=== PATIENT | female | born 1970 | race Caucasian/White ===

== ENCOUNTER 2018-03-19 02:30 | Emergency (ER) | payer OTHER ==
[2018-03-19 03:01] VITALS: BP 136/75; PULSE 85; TEMP 98.7; BMI 25.4
--- NOTE | 2018-03-19 03:05 | PDOC ---
History of Present Illness - General Stated Complaint: CALF PAIN Time Seen by Provider: 03/19/18 03:05 History Source: Patient Exam Limitations: No Limitations - History of Present Illness Initial Comments: 03/19/18 03:15 47 year old female with PMH fibromyalgia presents to ED complaining of right calf pain since yesterday. She states she was walking and then all of a sudden felt her calf cramp up. She denies chest pain, palpitations, shortness of breath , fever, chills, nausea, vomiting, diarrhea. Denies estrogen use, oral contraceptives, Hx blood clots, travel >6 hours, immobilization >3 days, casting of extremities. Past History - Past Medical History Allergies/Adverse Reactions: Allergies Allergy/AdvReac Type Severity Reaction Status Date / Time No Known Allergies Allergy Verified 08/07/16 20:11 Home Medications: Ambulatory Orders Ibuprofen [Motrin -] 600 mg PO Q6H PRN #30 tablet MDD 4 tablets 08/07/16 Oxycodone HCl/Acetaminophen [Percocet 5-325 mg Tablet] 1 tab PO Q6H PRN #20 tablet MDD 4 tablets daily 08/07/16 Hypercholesterolemia: Yes - Suicide/Smoking/Psychosocial Hx Smoking History: Never smoked Have you smoked in the past 12 months: No Information on smoking cessation initiated: No Hx Alcohol Use: Yes (occasswionally) Drug/Substance Use Hx: No Review of Systems - Review of Systems Able to Perform ROS?: Yes Comments:: 03/19/18 03:18 General: denies fever, chills, night sweats, generalized weakness. HEENT: denies sore throat, rhinorrhea, ear pain. Heart: denies chest pain, palpitations, syncope, lower extremity swelling, diaphoresis. Respiratory: denies shortness of breath, cough, sputum production, hematemesis. Abdomen: denies abdominal pain, nausea, vomiting, diarrhea, constipation, blood in stool. : denies dysuria, increased urinary frequency, hematuria, urinary incontinence , flank pain. Back: denies back pain, flank pain. Musculoskeletal: admits to right calf pain. denies joint pain, joint swelling. Neurological: denies headache, dizziness, numbness, tingling, weakness. Skin: denies rash, laceration, abrasion. *Physical Exam - Vital Signs Last Vital Signs Temp Pulse Resp BP Pulse Ox 98.7 F 85 20 136/75 99 03/19/18 02:53 03/19/18 02:53 03/19/18 02:53 03/19/18 02:53 03/19/18 02:53 - Physical Exam Comments: 03/19/18 03:19 Appearance: comfortable. HEENT: head is normocephalic, atraumatic. EOMI. PERRLA. Neck: supple. Full ROM. Heart: regular rhythm. no murmurs, rubs or gallops. No pericardial friction rub. Lungs: clear to auscultation bilaterally. no crackles, rhonchi or wheezing. no stridor. Abdomen: soft, nontender. normal bowel sounds. no rebound, guarding, masses. Extremities: right calf tender to palpation. right lower extremity neurovascularly intact. no calf swelling. Peripheral pulses intact and equal. No lower extremity edema. Neurological: Alert. Oriented x3. CN 2-12 grossly intact. Moves all four extremities. Heart Score/ECG Review - ECG Impressions Comment:: 03/19/18 06:54 Rate 78, regular rhythm, normal axis, no acute ST changes. Medical Decision Making - Medical Decision Making 03/19/18 03:20 47 year old female with PMH fibromyalgia presenting to ED for right calf pain since yesterday. She denies exogenous estrogen use, recent trauma/surgery, hx DVT/PE, recent immobilization, recent travel >6 hours, casting of lower extremities. Initial Vital Signs Temp Pulse Resp BP Pulse Ox 98.7 F 85 20 136/75 99 03/19/18 02:53 03/19/18 02:53 03/19/18 02:53 03/19/18 02:53 03/19/18 02:53 Afebrile. No tachycardia. No hypotension. No hypoxia. Percocet ordered for pain control. Will reassess patient. 03/19/18 05:22 Pt states improvement in pain, but is unable to bear weight or walk unassisted. Pending LE venous ultrasound. 03/19/18 06:20 Pt reassessed, states she had 5 minutes of left sided dull chest pain associated with palpitations that self resolved. Pending EKG. I discussed the case with Dr. De Souza, who will take over care in the Emergency Department. *DC/Admit/Observation/Transfer Diagnosis at time of Disposition: Muscle strain - Discharge Dispostion Disposition: HOME - Referrals Referrals: Brenda Miller MD [Primary Care Provider] - - Patient Instructions Printed Discharge Instructions: Muscle Strain Additional Instructions: You have been diagnosed with muscle strain. Please follow up with your primary care provider within 24 hours for additional care. Your care is not considered complete until this visit. Please return to the emergency department immediately for worsening, persistent, or new concerning symptoms. Print Language: TELUGU - Post Discharge Activity Forms/Work/School Notes: Back to Work
--- NOTE | 2018-03-19 03:15 | PDOC ---
Attending Attestation - Resident Resident Name: Ashley Chacon - ED Attending Attestation I have performed the following: I have examined & evaluated the patient, The case was reviewed & discussed with the resident, I agree w/resident's findings & plan <Tracy Archer - Last Filed: 03/19/18 06:12> - HPI HPI: 03/19/18 04:08 The patient is a 47-year-old female with a past medical history of fibromyalgia and high triglyceride, presents to the emergency department with R. calf pain since today. The patient states she was at the pool yesterday walking when a sudden onset of strong pain presented to the R. calf. The patient states the pains constant, without relief with icy hot or Excedrin. Denies shortness of breath or chest pain. Denies numbness, tingling or loss of sensation. Denies recent travel. Denies prior hx of blood clot. Patient is a nonsmoker. Denies the use of oral contractions. Allergies: NKA PCP: Brenda Miller MD - Physicial Exam PE: 03/19/18 06:24 GENERAL: Awake, alert, and fully oriented, in no acute distress HEAD: No signs of trauma EYES: PERRLA, EOMI, sclera anicteric, conjunctiva clear ENT: Auricles normal inspection, hearing grossly normal, nares patent, oropharynx clear without exudates. Moist mucosa NECK: Normal ROM, supple, no lymphadenopathy, JVD, or masses LUNGS: Breath sounds equal, clear to auscultation bilaterally. No wheezes, and no crackles HEART: Regular rate and rhythm, normal S1 and S2, no murmurs, rubs or gallops ABDOMEN: Soft, nontender, normoactive bowel sounds. No guarding, no rebound. No masses EXTREMITIES:(+) R. lower leg swollen than left leg. Calf tenderness to palpation. Rest of the extremities: Normal range of motion, no edema. No clubbing or cyanosis. No cords, erythema, or tenderness NEUROLOGICAL: Cranial nerves II through XII grossly intact. Normal speech, normal gait SKIN: No skin color changes. Warm, Dry, normal turgor, no rashes or lesions noted. - Medical Decision Making 03/19/18 04:08 Documentation prepared by Chen Brown, acting as medical staffing coordinator for Tracy Archer MD. <Chen Brown - Last Filed: 03/19/18 06:34>
--- NOTE | 2018-03-19 10:51 | PDOC ---
*Physical Exam - Vital Signs Last Vital Signs Temp Pulse Resp BP Pulse Ox 98.7 F 85 20 136/75 99 03/19/18 02:53 03/19/18 02:53 03/19/18 02:53 03/19/18 02:53 03/19/18 02:53 03/19/18 10:49 Continuiation of care from Dr. Chacon. ED Treatment Course - Medications Given in the ED: ED Medications Discontinued Medications Generic Name Dose Route Start Last Admin Trade Name Grace PRN Reason Stop Dose Admin Oxycodone/Acetaminophen 2 combo 03/19/18 03:15 03/19/18 04:47 Percocet 5/325 - PO 03/19/18 03:16 2 combo ONCE ONE Administration *DC/Admit/Observation/Transfer Diagnosis at time of Disposition: Muscle strain - Discharge Dispostion Disposition: HOME Decision to Admit order: No - Referrals Referrals: Brenda Miller MD [Primary Care Provider] - - Patient Instructions Printed Discharge Instructions: Muscle Strain Additional Instructions: You have been diagnosed with muscle strain. Please follow up with your primary care provider within 24 hours for additional care. Your care is not considered complete until this visit. Please return to the emergency department immediately for worsening, persistent, or new concerning symptoms. Print Language: CZECH - Post Discharge Activity Forms/Work/School Notes: Back to Work
--- NOTE | 2018-03-19 11:36 | EKG ---
Test Reason : Blood Pressure : / mmHG Vent. Rate : 078 BPM Atrial Rate : 078 BPM P-R Int : 174 ms QRS Dur : 080 ms QT Int : 406 ms P-R-T Axes : 055 045 060 degrees QTc Int : 462 ms NORMAL SINUS RHYTHM NORMAL ECG WHEN COMPARED WITH ECG OF 12-SEP-2000 15:21, T WAVE VARIATION Confirmed by OFELIA JIMÉNEZ MD ([id number]) on 03/19/2018 11:35:51 AM Referred By: Confirmed By:OFELIA JIMÉNEZ MD
== END 2018-03-19 11:46 | disposition home or self-care (01) ==
LOC: JER 02:30
DX: S86.811A Strain of other muscle(s) and tendon(s) at lower leg level, right leg, initial encounter (principal); X58.XXXA Exposure to other specified factors, initial encounter; Y93.9 Activity, unspecified; Y92.9 Unspecified place or not applicable; M79.7 Fibromyalgia; E78.1 Pure hyperglyceridemia
CPT/HCPCS: 93005; 93010; 93971-TC; 99281-25

== ENCOUNTER 2018-09-03 10:02 | Day surgery (SDC) | payer OTHER ==
[2018-08-31 14:09] VITALS: BMI 27.5
[2018-09-03] MEDS ORDERED: MIDAZOLAM HCL 2 MG/2 ML SINGLE DOSE VIAL ONE (11:45)
[2018-09-03] MEDS ORDERED: PROPOFOL 20 ML ONE ×2 (11:45→12:20)
[2018-09-03] MEDS ORDERED: SUCCINYLCHOLINE CHLORIDE 200 MG/10 ML VIAL ONE (11:55)
[2018-09-03] MEDS ORDERED: ONDANSETRON 4 MG/2 ML VIAL IVPUSH PRN (12:39)
[2018-09-03] MEDS ORDERED: oxyCODONE HCL 5 MG TABLET PO PRN ×2 (12:39)
[2018-09-03] MEDS ORDERED: LACTATED RINGERS SOLUTION 1,000 ML IV SCH (12:45)
[2018-09-03] MEDS ORDERED: ONDANSETRON 4 MG/2 ML VIAL ONE ×2 (13:42→13:49)
[2018-09-03] MEDS ORDERED: KETOROLAC TROMETHAMINE 30 MG/1 ML VIAL IVPUSH ONE (15:00)
[2018-09-03] MEDS ORDERED: KETOROLAC TROMETHAMINE 30 MG/1 ML VIAL ONE (15:03)
[2018-09-03] MEDS ORDERED: oxyCODONE HCL 5 MG TABLET ONE (15:03)
--- NOTE | 2018-09-03 15:08 | OP ---
Operative Note - Note: Operative Date: 09/03/18 Pre-Operative Diagnosis: stress urinary incontinence Operation: transvaginal urethropexy with sling via transobturator approach Implants: sling Post-Operative Diagnosis: Same as Pre-op Surgeon: Nitesh Crow Anesthesia: General Drains & Tubes with Location: mclaughlin catheter with vaginal packing Operative Report Dictated: Yes
[2018-09-03] MEDS ORDERED: fentaNYL CITRATE/PF 1,000 MCG/20 ML AMPUL IVPUSH ONE (15:21)
[2018-09-03] MEDS ORDERED: ACETAMINOPHEN 1000 MG/100 ML VIAL (NON FORMULARY) IVPB ONE ×2 (17:19→17:25)
[2018-09-03] MEDS ORDERED: ACETAMINOPHEN INJECTION 100 ML IVPB ONE (17:21)
[2018-09-03 18:08] VITALS: BP 117/65; PULSE 88; TEMP 97.9
--- NOTE | 2018-09-03 18:20 | OP ---
DATE OF OPERATION: 09/03/2018 PREOPERATIVE DIAGNOSIS: Stress urinary incontinence. POSTOPERATIVE DIAGNOSIS: Stress urinary incontinence. PROCEDURE: Transvaginal urethropexy utilizing vaginal sling via obturator approach. ATTENDING SURGEON: Nitesh Crow MD ANESTHESIA: General. OPERATION: As follows, the patient was brought into the operating room and placed in a supine position on the operating room table. The patient was given anesthesia and preoperative antibiotics and was placed in the dorsal lithotomy position and prepped and draped in the usual sterile manner. Sutures were placed in both labia to retract them laterally. With this accomplished, a Yang catheter was then placed into the bladder, and the bladder was emptied. A vaginal speculum was then placed in the vagina. A this point, an incision overlying the urethra was performed measuring 3 cm. Sharp and blunt dissection was utilized in order to free the vaginal mucosa from the urethra and bladder. The lateral tissue was then swept with the index finger of the surgeon. At this point, stab incisions were made along the lateral labial crease at the level of the clitoris. A stab incision was made, and then the obturator passer was placed into the stab incision and brought around the obturator and with the index finger of the surgeon lateral to the bladder was palpated and brought out into the surgical field. The same was done on the opposite side. Cystoscopy was performed to ensure that there was no passage of material into the bladder. The sling was then passed and brought out bilaterally. The sling was left loosely under the urethra without tension. At this point, the sling was cut at the skin level bilaterally. A running 3-0 Vicryl stitch was used to close the anterior vaginal mucosa. A stab incision was closed with a single chromic stitch bilaterally. The Yang had been placed after cystoscopy and was left to straight drainage. Vaginal packing was placed as well. The patient will be followed in the morning to have the vaginal packing and Yang catheter removed. The patient tolerated the procedure very well, and the disposition of the patient was to the recovery room. Trevin [id number]
== END 2018-09-03 18:15 | disposition home or self-care (01) ==
LOC: JASU-SURG 10:02
PROVIDERS: ATTEND Urology
PROC: 0TSD0ZZ Reposition Urethra, Open Approach (ICD-10-PCS; principal; 2018-09-03 12:00)
DX: N39.3 Stress incontinence (female) (male) (principal)
CPT/HCPCS: 57288; C1771; 84703; 94760; J0131

== ENCOUNTER 2022-09-29 05:22 | Day surgery (SDC) | payer BC ==
[2022-09-28 12:16] VITALS: BMI 26.4
[2022-09-29 12:37] VITALS: TEMP 98.1
[2022-09-29 14:10] VITALS: BP 124/73; PULSE 71; RESP 21
== END 2022-09-29 13:52 | disposition home or self-care (01) ==
LOC: JASU-ENDO 05:22
PROVIDERS: ATTEND Internal Medicine Gastroenterology
PROC: 0DJD8ZZ Inspection of Lower Intestinal Tract, Via Natural or Artificial Opening Endoscopic (ICD-10-PCS; principal; 2022-09-29 12:00)
DX: Z12.11 Encounter for screening for malignant neoplasm of colon (principal)
CPT/HCPCS: 81025

== ENCOUNTER 2025-03-06 14:39 | Emergency (ER) | payer BC, OTHER ==
[2025-03-06 14:50] VITALS: PULSE 83; RESP 18; TEMP 98.1; BMI 25.9
[2025-03-06] MEDS ORDERED: ACETAMINOPHEN INJECTION 100 ML ONE ×2 (16:08→16:09)
[2025-03-06 16:33] LABS: URINE APPEARANCE CLEAR; URINE BILIRUBIN NEGATIVE (NEGATIVE); URINE COLOR YELLOW; URINE GLUCOSE (UA) NEGATIVE (NEGATIVE); URINE KETONE NEGATIVE (NEGATIVE); URINE LEUK ESTERASE NEGATIVE (NEGATIVE); URINE NITRITE NEGATIVE (NEGATIVE); URINE PROTEIN NEGATIVE (NEGATIVE); URINE UROBILINOGEN 0.2 mg/dL (0.2-1.0)
[2025-03-06 16:48] LABS: ABSOLUTE IMMATURE GRANULOCYTES 0.02 x10^3/uL (0.0-0.031); BASOPHILS # 0.06 x10^3/uL (0.01-0.08); EOSINOPHIL % 3.4 % (0.7-5.8); EOSINOPHILS # 0.24 x10^3/uL (0.04-0.36); MCHC 32.9 g/dl (32.2-35.5); MEAN CELL VOLUME 94.3 fl (79.4-94.8); MEAN PLT VOLUME 10.3 fl (9.4-12.3); MONOCYTE # 0.30 x10^3/uL (0.24-0.86); MONOCYTE % 4.2 % (4.7-12.5); RDW 11.8 % (12.3-16.6)
[2025-03-06] MEDS: ACETAMINOPHEN 1000 MG/100 ML BAG IVPB ONE (16:48)
[2025-03-06] MEDS: morphine CARPU-JECT 4 MG/1 ML DISP.SYRIN IVPUSH ONE (16:50)
[2025-03-06 17:03] LABS: CO2 27.0 mmol/L (21-32)
[2025-03-06 17:04] LABS: GLUCOSE,RANDOM 102.0 mg/dL (74-106)
[2025-03-06 17:06] LABS: SGOT/AST 22.0 U/L (15-37); SGPT/ALT 63.0 U/L (13-61)
[2025-03-06 17:07] LABS: CREATININE 1.0 mg/dL (0.55-1.3)
[2025-03-06 17:08] LABS: TOT PROT 7.8 g/dl (6.4-8.2)
[2025-03-06 17:09] LABS: ALK PHOS 143.0 U/L (45-117)
[2025-03-06 17:56] LABS: HCV DIAGNOSTIC IN-HOUSE W/RFLX NON-REACTIVE (NONREACTIVE)
[2025-03-06 21:05] VITALS: BP 173/91
[2025-03-06 21:48] LABS: HIV INTERPRETATION PRESUMPTIVE POSITIVE (NEGATIVE)
== END 2025-03-06 21:06 | disposition home or self-care (01) ==
LOC: JER 14:39
PROC: 3E033NZ Introduction of Analgesics, Hypnotics, Sedatives into Peripheral Vein, Percutaneous Approach (ICD-10-PCS; principal; 2025-03-06)
PROC: 3E033NZ Introduction of Analgesics, Hypnotics, Sedatives into Peripheral Vein, Percutaneous Approach (ICD-10-PCS; 2025-03-06)
DX: R10.32 Left lower quadrant pain (principal); R11.0 Nausea; R30.0 Dysuria
CPT/HCPCS: 36415; 74177-TC; 80053; 81003; 83690; 84703; 85025; 86803; 87070; 87077; 87086; 87205; 87389; 87491; 87591; 87661; 99285-25; Q9967